=== PATIENT | female | born 1960 | race Caucasian/White ===

== ENCOUNTER 2019-04-29 07:26 | Day surgery (SDC) | payer OTHER ==
[2019-04-23 17:12] VITALS: BMI 48.0
[2019-04-29] MEDS ORDERED: LIDOCAINE HCL/PF 2% SDV 5ML VIAL ONE (07:57)
[2019-04-29] MEDS ORDERED: PROPOFOL 20 ML ONE ×4 (07:57)
[2019-04-29 08:03] VITALS: TEMP 98.3
[2019-04-29] MEDS ORDERED: PHENYLEPHRINE HCL 10 MG/1 ML SINGLE DOSE VIAL ONE (08:31)
[2019-04-29 09:30] VITALS: BP 133/79; PULSE 73
--- NOTE | 2019-05-01 17:56 | PATH ---
Surgical Pathology Report Patient Name: AYSHA RICARDO [facility]. Rec. #: [id number] /Age/Gender: 1960 (Age: 59) / F Account: [id number] Location: [facility] Taken: 04/29/2019 Received: 04/29/2019 Reported: 05/01/2019 Physicians: Deonte Alexander M.D. Specimen(s) Received A: DUODENUM, SECOND PORTION B: ANTRUM Clinical History GERD, screening Postoperative diagnosis: Mild gastritis, normal colon Final Diagnosis A. DUODENUM, SECOND PORTION, BIOPSY: DUODENAL MUCOSA WITH MILD CHRONIC DUODENITIS AND MILD INTRAEPITHELIAL LYMPHOCYTOSIS. SEE COMMENT. B. GASTRIC ANTRUM, BIOPSY: GASTRIC ANTRAL MUCOSA WITH MODERATE CHRONIC ACTIVE GASTRITIS. IMMUNOHISTOCHEMICAL STAIN FOR H. PYLORI IS NEGATIVE. Comment: Part A, The finding is non-specific and may be seen in gluten sensitive enteropathy (celiac disease) and chronic duodenitis. In the presence of chronic inflammation the findings are likely related to chronic duodenitis. Serological correlations are suggested if clinically indicated. Electronically Signed Nancy Zabala M.D. Gross Description A. Received in formalin, labeled "biopsy second portion of duodenum" are 3 thomas, irregular portions of soft tissue ranging from 0.3-0.4 cm. in greatest dimension. The specimens are submitted in toto in one cassette. B. Received in formalin, labeled "biopsy gastric antrum" are 2 thomas, irregular portions of soft tissue averaging 0.3 cm. in greatest dimension. The specimens are submitted in toto in one cassette. /04/29/2019 saudi04/29/2019
== END 2019-04-29 09:40 | disposition home or self-care (01) ==
LOC: FASU-ENDO 07:26
PROVIDERS: ATTEND Internal Medicine Gastroenterology
PROC: 0DB98ZX Excision of Duodenum, Via Natural or Artificial Opening Endoscopic, Diagnostic (ICD-10-PCS; 2019-04-29)
PROC: 0DB68ZX Excision of Stomach, Via Natural or Artificial Opening Endoscopic, Diagnostic (ICD-10-PCS; 2019-04-29)
PROC: 0DJD8ZZ Inspection of Lower Intestinal Tract, Via Natural or Artificial Opening Endoscopic (ICD-10-PCS; principal; 2019-04-29 08:36)
DX: Z12.11 Encounter for screening for malignant neoplasm of colon (principal); K29.80 Duodenitis without bleeding; K29.50 Unspecified chronic gastritis without bleeding; D72.820 Lymphocytosis (symptomatic); R12 Heartburn; Z87.19 Personal history of other diseases of the digestive system
CPT/HCPCS: 88305-TC; 88342-TC